=== PATIENT | female | born 1960 | race Caucasian/White ===

== ENCOUNTER 2019-07-19 08:16 | Day surgery (SDC) | payer OTHER ==
[2019-07-17 16:42] LABS: ALBUMIN 4.1 g/dL (3.4-5.0); ANION GAP 2 mmol/L (5-15); CALCIUM 9.3 mg/dL (8.5-10.1); CHLORIDE 108 mmol/L (98-107)
[2019-07-17 16:45] LABS: ALANINE AMINOTRANSFERASE 23 U/L (12-78); ALKALINE PHOSPHATASE 67 U/L (45-117); BILIRUBIN,TOTAL 0.6 mg/dL (0.2-1.0); CREATININE 1.17 mg/dL (0.55-1.02); TOTAL PROTEIN 7.8 g/dL (6.4-8.2)
[~2019-07-19] VITALS: Ht 177.8 cm; Wt 112.0 kg
[~2019-07-19 08:16] MED LIST: BUPIVACAINE/PF 0.5% ONE; EPINEPHRINE 1 MG/ML, 1ML ONE; LISI-170 PO; OMEP-110 PO; ROSU10TA2 PO
[2019-07-19 08:57] VITALS: BP 158/105
[2019-07-19] MEDS ORDERED: LACTATED RINGERS 1,000 ML IV SCH (09:00)
[2019-07-19] MEDS ORDERED: GABAPENTIN 300 MG CAPSULE PO ONE (09:30)
[2019-07-19] MEDS ORDERED: ACETAMINOPHEN 500 MG TABLET PO ONE (09:30)
[2019-07-19 09:32] VITALS: BP 145/89
[2019-07-19] MEDS ORDERED: MIDAZOLAM 1 MG/ML, 2ML ONE (10:23)
[2019-07-19] MEDS ORDERED: FENTANYL PF 250 MCG/5ML ONE (10:23)
[2019-07-19] MEDS ORDERED: ROCURONIUM 10MG/ML,5ML ONE (10:27)
[2019-07-19] MEDS ORDERED: PROPOFOL 10 MG/ML, 20ML ONE (10:27)
[2019-07-19] MEDS ORDERED: SUCCINYLCHOLINE 20 MG/ML, 10ML ONE (10:27)
[2019-07-19] MEDS ORDERED: KETOROLAC 30 MG/1 ML ONE (10:43)
[2019-07-19] MEDS ORDERED: CEFAZOLIN 1,000 MG ONE (10:50)
[2019-07-19] MEDS ORDERED: DEXAMETHASONE 4 MG/ML, 1ML ONE ×2 (10:50)
[2019-07-19] MEDS ORDERED: OXYcodone 5 MG/5 ML ORAL.SOL UDC PO PRN ×2 (11:30→12:30)
[2019-07-19] MEDS ORDERED: HALOPERIDOL 5 MG/ML IV PRN (11:30)
[2019-07-19] MEDS ORDERED: EPHEDRINE 50 MG/ML, 1ML IVPush PRN (11:30)
[2019-07-19] MEDS ORDERED: FENTANYL PF 100 MCG/2ML IV PRN (11:30)
[2019-07-19] MEDS ORDERED: MEPERIDINE/PF 25MG/ML,1ML IVPush PRN (11:30)
[2019-07-19] MEDS ORDERED: ALBUTEROL SULFATE 2.5 MG/3 ML NPPB PRN (11:30)
[2019-07-19] MEDS ORDERED: HYDROmorphone 2 MG/ML, 1ML IVPush PRN (11:30)
[2019-07-19] MEDS ORDERED: ONDANSETRON 2MG/ML, 2ML IV PRN (11:30)
[2019-07-19] MEDS ORDERED: LABETALOL 5MG/ML, 20ML IV PRN (11:30)
[2019-07-19] MEDS ORDERED: PROMETHAZINE 25 MG/ML, 1ML IV PRN (11:30)
[2019-07-19] MEDS ORDERED: ONDANSETRON ODT 8 MG PO PRN (11:30)
[2019-07-19] MEDS ORDERED: DIAZEPAM 5 MG/ML, 2ML IVPush PRN (11:30)
[2019-07-19] MEDS ORDERED: MIDAZOLAM 1 MG/ML, 2ML IV PRN (11:30)
[2019-07-19] MEDS ORDERED: PROMETHAZINE 12.5 MG SUPP PR PRN (11:30)
[2019-07-19] MEDS ORDERED: hydrALAzine 20 MG/ML, 1ML IV PRN (11:30)
[2019-07-19] MEDS ORDERED: FENTANYL PF 100 MCG/2ML ONE (11:40)
[2019-07-19] MEDS ORDERED: ONDANSETRON 2MG/ML, 2ML ONE (11:44)
[2019-07-19] MEDS ORDERED: SUGAMMADEX 200 MG/2 ML IVPush ONE (11:44)
[2019-07-19] MEDS ORDERED: HYDROmorphone 1 MG/ML, 1ML INJ ONE (12:16)
[2019-07-19] MEDS ORDERED: OXYcodone 5 MG/5 ML ORAL.SOL UDC ONE (12:17)
[2019-07-19] MEDS: HYDROmorphone 2 MG/ML, 1ML IVPush PRN ×3 (12:24→13:01)
== END 2019-07-19 16:20 | disposition home or self-care (01) ==
LOC: OUT 08:16
PROVIDERS: ATTEND Surgery
DX: K43.6 Other and unspecified ventral hernia with obstruction, without gangrene (principal); I10 Essential (primary) hypertension; E78.5 Hyperlipidemia, unspecified; K21.9 Gastro-esophageal reflux disease without esophagitis; K76.0 Fatty (change of) liver, not elsewhere classified; Z79.899 Other long term (current) drug therapy; Z98.51 Tubal ligation status; Z98.890 Other specified postprocedural states; Z83.3 Family history of diabetes mellitus
CPT/HCPCS: 36415; 49653; 80053; 93005; C1781; J0171; J0330; J0690; J1100; J1170; J1885; J2250; J2405; J2704; J3010; S2900

== ENCOUNTER → 2019-10-02 | Outpatient (CLI) | payer OTHER ==
[~2019-10-02] MED LIST changes: -BUPIVACAINE/PF 0.5% ONE; -EPINEPHRINE 1 MG/ML, 1ML ONE
== END | disposition home or self-care (01) ==
LOC: CVU 15:33
PROVIDERS: ATTEND Nurse Practitioner Primary Care
DX: I08.3 Combined rheumatic disorders of mitral, aortic and tricuspid valves (principal); I10 Essential (primary) hypertension; E78.5 Hyperlipidemia, unspecified
CPT/HCPCS: 93306

== ENCOUNTER → 2020-10-09 | Outpatient (CLI) | payer OTHER | END | disposition home or self-care (01) | LOC: CFH 14:48 | PROVIDERS: ATTEND Internal Medicine Cardiovascular Disease | DX: I06.1 Rheumatic aortic insufficiency (principal); I06.8 Other rheumatic aortic valve diseases; I10 Essential (primary) hypertension; E78.5 Hyperlipidemia, unspecified | CPT/HCPCS: 93306 ==

== ENCOUNTER → 2020-10-15 | Outpatient (CLI) | payer OTHER | END | disposition home or self-care (01) | LOC: CFH 15:05 | PROVIDERS: ATTEND Internal Medicine Cardiovascular Disease | DX: I25.10 Atherosclerotic heart disease of native coronary artery without angina pectoris (principal); E78.00 Pure hypercholesterolemia, unspecified | CPT/HCPCS: 75571 ==